=== PATIENT | female | born 1960 | race African-American/Black ===

== ENCOUNTER 2016-11-20 13:37 | Observation (INO) | payer MEDICARE, OTHER ==
[~2016-11-20] VITALS: Ht 152.4 cm; Wt 85.7 kg
[~2016-11-20 13:37] MED LIST: AMLO10TA80 PO; BENA40TA3 PO; DILT240C92 PO; DIPH25CA83 PO; KEPP500 PO; LAMO25TA4 PO; LISI1TAB13 PO; PHEN100C4 PO; POTA10TA15 PO; TRAM50TA3 PO
[2016-11-20] MEDS ORDERED: LORAZEPAM 2MG/ML CPJ IM STA (13:53)
[2016-11-20] MEDS ORDERED: LEVETIRACETAM 1,000 MG in SODIUM CHLORIDE 0.9% 100 ML IV ONE (14:00)
[2016-11-20] MEDS ORDERED: LORAZEPAM 2MG/ML CPJ ONE ×2 (14:00→17:26)
[2016-11-20] MEDS ORDERED: PHENYTOIN SODIUM 1,000 MG in SODIUM CHLORIDE 0.9% 100 ML IV ONE (14:00)
[2016-11-20] MEDS ORDERED: LEVETIRACETAM 1,000 MG in SODIUM CHLORIDE 0.9% 100 ML IV NR (14:32)
[2016-11-20 15:26] LABS: CHLORIDE 105 mEq/L (98-107); INDEX HEMOLYSI 1 (1-3); INDEX ICTERIC 1 (1-4); INDEX LIPEMIC 1 (1-3)
[2016-11-20 15:29] LABS: HEMATOCRIT. 44.3 % (36.0-48.0); HEMOGLOBIN. 15.1 g/dL (12.0-16.0); MEAN CORPUSCULAR HEMOGLOBIN 29.1 pg (28.0-32.0); MEAN CORPUSCULAR HGB CONC 34.1 g/dL (31.0-37.0); MEAN CORPUSCULAR VOLUME 85.4 fL (81.0-99.0); MEAN PLATELET VOLUME 9.2 fl (7.4-10.4); PLATELET 280 x1000/uL (130-400); RED BLOOD CELL COUNT 5.19 mill/uL (4.2-5.4); RED CELL DISTRIBUTION WIDTH 13.9 % (11.6-14.6); WHITE BLOOD COUNT 11.5 x1000/uL (4.5-11.0)
[2016-11-20] MEDS ORDERED: LORAZEPAM 2MG/ML CPJ IV ONE ×2 (15:30→17:30)
[2016-11-20 15:32] LABS: ALBUMIN 3.8 g/dL (3.4-5.0); ANION GAP 12; CALCIUM 8.9 mg/dL (8.5-10.1); CARBON DIOXIDE 27 mEq/L (21-32); ETHANOL BLOOD < 10 mg/dL; UREA NITROGEN BLOOD 10 mg/dL (7-21)
[2016-11-20 15:35] LABS: ALANINE AMINOTRANSFERASE 24 IU/L (13-61); PHENYTOIN 9.4 ug/mL (10-20); eGFR > 60 mL/min (>60)
[2016-11-20 15:39] LABS: DIFFERENTIAL COMMENT 1
[2016-11-20 16:27] LABS: PLATELET ESTIMATE NORMAL; PLATELET SATELLITISM FEW
[2016-11-20 16:28] LABS: ANISOCYTOSIS 1+
[2016-11-20 21:35] VITALS: BP 162/108
[2016-11-20 21:54] VITALS: BP 162/108
[2016-11-20 21:59] VITALS: BP 162/108
[2016-11-20] MEDS ORDERED: DIPHENHYDRAMINE 25MG CAPSULE PO PRN (22:45)
[2016-11-20] MEDS ORDERED: LORAZEPAM 2MG/ML CPJ IV PRN (23:15)
[2016-11-21] VITALS: BP 143/86
[2016-11-21] MEDS: AMLODIPINE 10MG TABLET PO SCH ×2 (00:06→09:57)
[2016-11-21] MEDS ORDERED: DEXT 5%/0.45% NACL KCL 20MEQ/L 1,000 ML IV SCH (02:00)
[2016-11-21 04:00] VITALS: BP 136/87
[2016-11-21 07:16] LABS: ANION GAP 13; CALCIUM 8.6 mg/dL (8.5-10.1); CARBON DIOXIDE 25 mEq/L (21-32); CHLORIDE 107 mEq/L (98-107); INDEX HEMOLYSI 1 (1-3); INDEX ICTERIC 1 (1-4); INDEX LIPEMIC 1 (1-3); UREA NITROGEN BLOOD 8 mg/dL (7-21); eGFR > 60 mL/min (>60)
[2016-11-21 07:21] LABS: BASOPHILS % 0.8 % (0.0-2.0); EOSINOPHILS % 1.5 % (0.0-5.0); HEMATOCRIT. 38.8 % (36.0-48.0); HEMOGLOBIN. 13.2 g/dL (12.0-16.0); LYMPHOCYTES % 33.2 % (20.0-50.0); MEAN CORPUSCULAR HEMOGLOBIN 29.2 pg (28.0-32.0); MEAN CORPUSCULAR HGB CONC 33.9 g/dL (31.0-37.0); MEAN CORPUSCULAR VOLUME 86.1 fL (81.0-99.0); MEAN PLATELET VOLUME 9.2 fl (7.4-10.4); MONOCYTES % 7.6 % (2.0-8.0); NEUTROPHILS % 56.9 % (40.0-76.0); PLATELET 282 x1000/uL (130-400); RED BLOOD CELL COUNT 4.51 mill/uL (4.2-5.4); RED CELL DISTRIBUTION WIDTH 13.9 % (11.6-14.6); WHITE BLOOD COUNT 8.2 x1000/uL (4.5-11.0)
[2016-11-21 08:00] VITALS: BP 120/62
[2016-11-21] MEDS ORDERED: LEVETIRACETAM 500MG TABLET PO SCH (09:00)
[2016-11-21] MEDS ORDERED: BENAZEPRIL 20MG TABLET PO SCH (09:00)
[2016-11-21] MEDS ORDERED: DILTIAZEM HCL 360MG CAPSULE SA 24HR PO SCH (09:00)
[2016-11-21] MEDS ORDERED: MEDICATION NOT ON FORMULARY EA (Benazepril Hcl 1 TAB) PO SCH (09:00)
[2016-11-21] MEDS ORDERED: PHENYTOIN SODIUM EXTENDED 100MG CAPSULE PO SCH (09:00)
[2016-11-21] MEDS ORDERED: FAMOTIDINE 20MG/2ML VIAL IV SCH (09:00)
[2016-11-21] MEDS ORDERED: LAMOTRIGINE 25MG TABLET PO SCH (09:00)
[2016-11-21] MEDS ORDERED: DILTIAZEM HCL 360 MG PO SCH (09:00)
[2016-11-21 09:26] VITALS: BP 120/62
[2016-11-21] MEDS ORDERED: HYDROCODONE/ACETAMINOPHEN 5/325MG TABLET PO PRN (11:00)
[2016-11-21 12:38] VITALS: BP 118/83
== END 2016-11-21 13:15 | disposition home or self-care (01) ==
LOC: ER 13:43 → INTOOBSV 17:52 → 5WST 17:52
PROVIDERS: ADMIT Ophthalmology; ATTEND Ophthalmology
DX: G40.909 Epilepsy, unspecified, not intractable, without status epilepticus (principal)
CPT/HCPCS: 36415; 70450; 80048; 80053; 80185; 85025; 96361; 96365; 96366; 96368; 96375; 99291; G0378; G0482; J1165; J1953; J2060; J3490; J7050

== ENCOUNTER 2018-02-26 09:47 | Emergency (ER) | payer MEDICARE, OTHER ==
[~2018-02-26] VITALS: Ht 149.9 cm; Wt 77.0 kg
[~2018-02-26 09:47] MED LIST changes: -BENA40TA3 PO; +BENA40TA9 PO
[2018-02-26] MEDS ORDERED: KETOROLAC 30MG/ML VIAL IM ONE (10:45)
[2018-02-26] MEDS ORDERED: CLONIDINE 0.2MG TABLET PO ONE (10:45)
[2018-02-26] MEDS ORDERED: TRAMADOL 50MG TABLET PO ONE (10:45)
[2018-02-26 12:17] LABS: BASOPHILS % 1.2 % (0.0-2.0); EOSINOPHILS % 1.8 % (0.0-5.0); HEMATOCRIT. 49.1 % (36.0-48.0); HEMOGLOBIN. 16.5 g/dL (12.0-16.0); MEAN CORPUSCULAR VOLUME 89.2 fL (81.0-99.0); MEAN PLATELET VOLUME 9.1 fl (7.4-10.4); MONOCYTES % 7.3 % (2.0-8.0); NEUTROPHILS % 56.7 % (40.0-76.0); PLATELET 293 x1000/uL (130-400); RED BLOOD CELL COUNT 5.51 mill/uL (4.2-5.4); RED CELL DISTRIBUTION WIDTH 13.6 % (11.6-14.6)
[2018-02-26 12:26] LABS: PROTHROMBIN TIME 9.9 sec (9.1-11.1)
[2018-02-26 12:27] LABS: CHLORIDE 102 mEq/L (98-107)
[2018-02-26 14:02] VITALS: BP 156/88
== END 2018-02-26 14:04 | disposition home or self-care (01) ==
LOC: ER 10:37
DX: S43.402A Unspecified sprain of left shoulder joint, initial encounter (principal); G40.909 Epilepsy, unspecified, not intractable, without status epilepticus; I10 Essential (primary) hypertension; I69.351 Hemiplegia and hemiparesis following cerebral infarction affecting right dominant side; I25.2 Old myocardial infarction; F17.200 Nicotine dependence, unspecified, uncomplicated; Z88.5 Allergy status to narcotic agent; Z91.011 Allergy to milk products; Z79.01 Long term (current) use of anticoagulants; Z91.012 Allergy to eggs; X58.XXXA Exposure to other specified factors, initial encounter; Y93.89 Activity, other specified; Y92.018 Other place in single-family (private) house as the place of occurrence of the external cause
CPT/HCPCS: 36415; 71045; 80053; 83880; 84484; 85025; 85610; 93005; 96372; 99285; J1885

== ENCOUNTER 2018-06-28 10:48 | Day surgery (SDC) | payer MEDICARE, OTHER ==
[2018-06-28] MEDS ORDERED: LEVE750T4 MT (12:51)
[2018-06-28] MEDS ORDERED: AMLO10TA4 MT (12:51)
[2018-06-28] MEDS ORDERED: ASPI-1158 MT (12:51)
[2018-06-28] MEDS ORDERED: CLON-457 PO (12:51)
[2018-06-28] MEDS ORDERED: LIP40 MT (12:51)
[2018-06-28] MEDS ORDERED: DIPH25TA23 MT (12:51)
[2018-06-28] MEDS ORDERED: IODIXANOL 320MG/ML 100 ML BOTTLE IV ONE (13:53)
[2018-06-28] MEDS ORDERED: LIDOCAINE HCL 1% 20ML VIAL (Pyxis) INJ ONE (13:53)
[2018-06-28] MEDS ORDERED: FENTANYL CITRATE/PF 50MCG/ML 2ML VIAL ONE (14:21)
[2018-06-28] MEDS ORDERED: MIDAZOLAM HCL 2 MG/2 ML VIAL ONE (14:21)
[2018-06-28] MEDS ORDERED: HYDRALAZINE 20MG/ML VIAL ONE (14:38)
[2018-06-28] MEDS ORDERED: ONDANSETRON HCL 4MG/2ML INJ IV PRN (14:45)
[2018-06-28] MEDS ORDERED: ACETAMINOPHEN 325MG TABLET PO PRN (14:45)
[2018-06-28] MEDS ORDERED: ATROPINE SULFATE 1MG/10ML SYR IV PRN (14:45)
[2018-06-28] MEDS ORDERED: HEPARIN SODIUM 1,000 UNIT/1ML VIAL IV ONE (14:56)
[2018-06-28] MEDS ORDERED: NICARDIPINE 100MCG/ML 10ML VIAL (CATH LAB) IV ONE (14:56)
[2018-06-28] MEDS ORDERED: NITROGLYCERIN 50MCG/ML 10ML VIAL (CATH LAB) IV ONE (14:56)
== END 2018-06-28 18:00 | disposition home or self-care (01) ==
LOC: CCL 10:48
PROVIDERS: ATTEND Specialist
DX: I20.8 Other forms of angina pectoris (principal); I10 Essential (primary) hypertension; J44.9 Chronic obstructive pulmonary disease, unspecified; F17.210 Nicotine dependence, cigarettes, uncomplicated; Z79.82 Long term (current) use of aspirin; Z79.899 Other long term (current) drug therapy; Z86.73 Personal history of transient ischemic attack (TIA), and cerebral infarction without residual deficits; Z88.5 Allergy status to narcotic agent
CPT/HCPCS: 93458; 99152; J0360; J1644; J2250; J3010; J3490; Q9967; C1769; C1893; G0500

== ENCOUNTER 2019-01-29 06:56 | Inpatient (IN) | payer MEDICARE, OTHER ==
[~2019-01-29] VITALS: Ht 149.9 cm; Wt 75.7 kg
[~2019-01-29 06:56] MED LIST changes: +AMLO10TA4 MT; +ASPI-1158 MT; +CLON-457 PO; +DIPH25TA23 MT; -KEPP500 PO; -LAMO25TA4 PO; +LAMO25TA9 PO; +LEVE750T4 MT; +LIP40 MT
[2019-01-29] MEDS ORDERED: LACTATED RINGERS 1,000 ML IV SCH (08:00)
[2019-01-29 08:25] LABS: BASOPHILS % 1.3 % (0.0-2.0); EOSINOPHILS % 2.6 % (0.0-5.0); HEMATOCRIT. 40.3 % (36.0-48.0); HEMOGLOBIN. 13.9 g/dL (12.0-16.0); LYMPHOCYTES % 30.2 % (20.0-50.0); MEAN CORPUSCULAR HEMOGLOBIN 30.2 pg (28.0-32.0); MEAN CORPUSCULAR VOLUME 87.8 fL (81.0-99.0); MEAN PLATELET VOLUME 8.9 fl (7.4-10.4); MONOCYTES % 7.9 % (2.0-8.0); PLATELET 280 x1000/uL (130-400); RED BLOOD CELL COUNT 4.59 mill/uL (4.2-5.4); RED CELL DISTRIBUTION WIDTH 13.9 % (11.6-14.6)
[2019-01-29 08:27] LABS: COLOR URINE YELLOW (YELLOW); KETONES URINE NEGATIVE (NEGATIVE); LEUKOCYTE ESTERASE URINE TRACE (NEGATIVE); NITRITE URINE NEGATIVE (NEGATIVE); OCCULT BLOOD URINE NEGATIVE (NEGATIVE); PH URINE 6.5 (4.5-8.0); PROTEIN URINE NEGATIVE (NEGATIVE); SPECIFIC GRAVITY URINE 1.012 (1.005-1.030); UROBILINOGEN URINE 0.2 E.U./dL (0.2-1.0)
[2019-01-29 08:29] LABS: CLARITY URINE CLEAR (CLEAR)
[2019-01-29 08:30] LABS: CHLORIDE 106 mEq/L (98-107); PARTIAL THROMBOPLASTIN TIME 28.2 sec (23.4-31.0); PROTHROMBIN TIME 10.2 sec (9.6-11.0)
[2019-01-29] MEDS ORDERED: BUPIVACAINE/EPINEPH/PF 0.25%/0.0005 10ML ONE ×2 (10:12→13:52)
[2019-01-29] MEDS ORDERED: MORPHINE SULFATE/PF 1MG/ML 10ML AMP ONE (10:12)
[2019-01-29] MEDS ORDERED: EPINEPHRINE 1:1000 1 MG/ML AMP ONE (10:12)
[2019-01-29] MEDS ORDERED: ROPIVACAINE HCL 10MG/ML 20 ML VIAL EPI ONE (10:25)
[2019-01-29] MEDS ORDERED: PROPOFOL 200MG/20ML VIAL IV ONE (10:48)
[2019-01-29] MEDS ORDERED: MIDAZOLAM HCL 2 MG/2 ML VIAL ONE (10:48)
[2019-01-29] MEDS ORDERED: FENTANYL CITRATE/PF 50MCG/ML 2ML VIAL ONE (10:48)
[2019-01-29] MEDS ORDERED: LIDOCAINE HCL 1% 20ML VIAL (Pyxis) INJ ONE (10:50)
[2019-01-29] MEDS ORDERED: ALBU18HF2 IH (11:33)
[2019-01-29] MEDS ORDERED: TIOT4MIS2 IH (11:33)
[2019-01-29] MEDS ORDERED: IPRA3AMP31 IH (11:33)
[2019-01-29] MEDS ORDERED: SUCCINYLCHOLINE CHLORIDE 200MG/10ML IV ONE (11:43)
[2019-01-29] MEDS ORDERED: ROCURONIUM BROMIDE 10MG/ML VIAL 5ML IV ONE (11:53)
[2019-01-29] MEDS ORDERED: LABETALOL HCL 5MG/ML VIAL 20ML IV ONE (14:00)
[2019-01-29] MEDS ORDERED: HYDRALAZINE 20MG/ML VIAL ONE (14:03)
[2019-01-29] MEDS ORDERED: ALBUTEROL 90MCG/PUFF 17GM INHALER INH ONE (14:14)
[2019-01-29] MEDS ORDERED: ACETAMINOPHEN 325MG TABLET PO PRN (14:45)
[2019-01-29] MEDS ORDERED: ONDANSETRON HCL 4MG/2ML INJ IV PRN ×2 (14:45→15:00)
[2019-01-29] MEDS ORDERED: TRAMADOL 50MG TABLET PO PRN (14:45)
[2019-01-29] MEDS ORDERED: FENTANYL CITRATE/PF 50MCG/ML 2ML VIAL IV PRN (15:00)
[2019-01-29] MEDS ORDERED: KETOROLAC 30MG/ML VIAL IV NR (15:00)
[2019-01-29] MEDS ORDERED: KETOROLAC 30MG/ML VIAL ONE (15:09)
[2019-01-29] MEDS: HYDROMORPHONE HCL/PF 2MG/ML CPJ IV PRN ×2 (15:27→15:44)
[2019-01-29] MEDS ORDERED: IPRATROPIUM/ALBUTEROL 0.5-3(2.5)MG/3ML NEB HHN PRN (15:30)
[2019-01-29] MEDS ORDERED: DIPHENHYDRAMINE 25MG CAPSULE PO PRN (15:45)
[2019-01-29 16:45] VITALS: BP 134/75
[2019-01-29] MEDS ORDERED: ENALAPRIL 2.5MG/2ML VIAL 2ML IV PRN (17:30)
[2019-01-29] MEDS: HYDROMORPHONE HCL/PF 2MG/ML CPJ IM PRN (17:34)
[2019-01-29 20:00] VITALS: BP 127/79
[2019-01-29] MEDS: PHENYTOIN SODIUM EXTENDED 100MG CAPSULE PO SCH (22:46)
[2019-01-29] MEDS: LEVETIRACETAM 250MG TABLET PO SCH (22:46)
[2019-01-29] MEDS: CEFAZOLIN 2,000 MG in DEXT 5% WATER 100 ML IV SCH (22:48)
[2019-01-30] VITALS: BP 124/61
[2019-01-30 04:00] VITALS: BP 120/78
[2019-01-30] MEDS: HYDROMORPHONE HCL/PF 2MG/ML CPJ IM PRN ×4 (04:36→21:05)
[2019-01-30] MEDS: PHENYTOIN SODIUM EXTENDED 100MG CAPSULE PO SCH (06:00)
[2019-01-30] MEDS: CEFAZOLIN 2,000 MG in DEXT 5% WATER 100 ML IV SCH (06:22)
[2019-01-30 08:00] VITALS: BP 144/71
[2019-01-30] MEDS: LEVETIRACETAM 250MG TABLET PO SCH ×2 (08:12→09:00)
[2019-01-30] MEDS: ATORVASTATIN CALCIUM 40MG TABLET PO SCH ×2 (08:12→09:00)
[2019-01-30] MEDS: BENAZEPRIL 10MG TABLET PO SCH ×2 (08:12→09:00)
[2019-01-30] MEDS: AMLODIPINE 10MG TABLET PO SCH ×2 (08:13→09:00)
[2019-01-30] MEDS: ASPIRIN 81MG TABLET PO SCH ×2 (08:13→09:00)
[2019-01-30] MEDS: LAMOTRIGINE 25MG TABLET PO SCH ×2 (08:13→09:00)
[2019-01-30] MEDS ORDERED: LORAZEPAM 2MG/ML CPJ ONE (09:11)
[2019-01-30] MEDS ORDERED: LORAZEPAM 2MG/ML CPJ IV PRN (09:15)
[2019-01-30] MEDS ORDERED: LORAZEPAM 2MG/ML CPJ IV NR (09:18)
[2019-01-30] MEDS: LEVETIRACETAM 500 MG in SODIUM CHLORIDE 0.9% 100 ML IV SCH ×2 (11:36→20:41)
[2019-01-30] MEDS: PHENYTOIN SODIUM 100 MG PO SCH ×2 (14:15→20:41)
[2019-01-30 16:00] VITALS: BP 159/86
[2019-01-30 20:00] VITALS: BP 175/90
[2019-01-31] VITALS (7 sets, daily range): BP systolic 123–192; BP diastolic 69–98
[2019-01-31] MEDS: AMLODIPINE 10MG TABLET PO SCH (00:53)
[2019-01-31] MEDS: HYDROMORPHONE HCL/PF 2MG/ML CPJ IM PRN ×3 (01:50→21:39)
[2019-01-31] MEDS ORDERED: NALOXONE HCL 0.4 MG/ML 1ML VIAL IV PRN (04:30)
[2019-01-31] MEDS: PHENYTOIN SODIUM 100 MG PO SCH ×2 (05:14→14:00)
[2019-01-31] MEDS: LEVETIRACETAM 500 MG in SODIUM CHLORIDE 0.9% 100 ML IV SCH (09:00)
[2019-01-31] MEDS: LAMOTRIGINE 25MG TABLET PO SCH ×2 (09:51→18:16)
[2019-01-31] MEDS: BENAZEPRIL 10MG TABLET PO SCH (09:52)
[2019-01-31] MEDS: ASPIRIN 81MG TABLET PO SCH (09:52)
[2019-01-31] MEDS: ATORVASTATIN CALCIUM 40MG TABLET PO SCH (09:52)
[2019-01-31] MEDS: LEVETIRACETAM 500MG/5ML CUP PO SCH ×2 (10:22→21:38)
[2019-01-31] MEDS ORDERED: PHENYTOIN SODIUM EXTENDED 100MG CAPSULE PO NR (15:00)
[2019-01-31] MEDS ORDERED: CLONIDINE 0.2MG TABLET PO PRN (18:15)
== END 2019-01-31 22:10 | disposition home or self-care (01) | DRG 502 ==
LOC: OR 06:56 → 6EST 06:57 → 5WST 01-30 10:32
PROVIDERS: ADMIT Internal Medicine; ATTEND Internal Medicine
PROC: 0LQ24ZZ Repair Left Shoulder Tendon, Percutaneous Endoscopic Approach (ICD-10-PCS; principal; 2019-01-29)
PROC: 0RNK4ZZ Release Left Shoulder Joint, Percutaneous Endoscopic Approach (ICD-10-PCS; 2019-01-29)
PROC: 0MB24ZZ Excision of Left Shoulder Bursa and Ligament, Percutaneous Endoscopic Approach (ICD-10-PCS; 2019-01-29)
PROC: 0PBB4ZZ Excision of Left Clavicle, Percutaneous Endoscopic Approach (ICD-10-PCS; 2019-01-29)
PROC: 0RBK4ZZ Excision of Left Shoulder Joint, Percutaneous Endoscopic Approach (ICD-10-PCS; 2019-01-29)
DX: M75.122 Complete rotator cuff tear or rupture of left shoulder, not specified as traumatic (principal); E78.5 Hyperlipidemia, unspecified; M19.012 Primary osteoarthritis, left shoulder; M65.812 Other synovitis and tenosynovitis, left shoulder; M75.22 Bicipital tendinitis, left shoulder; M75.42 Impingement syndrome of left shoulder; M94.212 Chondromalacia, left shoulder; E03.9 Hypothyroidism, unspecified; G89.29 Other chronic pain; I10 Essential (primary) hypertension; F17.210 Nicotine dependence, cigarettes, uncomplicated; E78.00 Pure hypercholesterolemia, unspecified; G40.409 Other generalized epilepsy and epileptic syndromes, not intractable, without status epilepticus; M75.52 Bursitis of left shoulder; Z88.5 Allergy status to narcotic agent; Z88.6 Allergy status to analgesic agent; I69.398 Other sequelae of cerebral infarction
CPT/HCPCS: 36415; 80048; 80185; 82962; 88304; 88311; 97166; 97535; A4565; C1713; J0171; J0330; J0360; J0690; J1170; J1885; J1953; J2060; J2250; J2274; J2310; J2405; J2704; J2795; J3010; J3490; J7050; J7060

== ENCOUNTER 2019-07-22 11:41 | Emergency (ER) | payer MEDICARE, OTHER ==
[~2019-07-22] VITALS: Ht 149.9 cm; Wt 73.0 kg
[~2019-07-22 11:41] MED LIST changes: +ALBU18HF2 IH; -AMLO10TA4 MT; -DILT240C92 PO; +IPRA3AMP31 IH; -LISI1TAB13 PO; -POTA10TA15 PO; +TIOT4MIS2 IH; -TRAM50TA3 PO
[2019-07-22 11:51] VITALS: BP 167/118
== END 2019-07-22 17:40 | disposition left against medical advice (07) ==
LOC: ER 11:41
DX: Z53.21 Procedure and treatment not carried out due to patient leaving prior to being seen by health care provider (principal)